=== PATIENT | female | born 1980 | race Caucasian/White ===

== ENCOUNTER 2020-04-13 14:24 | Outpatient (REF) | payer OTHER, SELFPAY | END 2020-04-13 14:25 | disposition home or self-care (01) | LOC: HO.LAB 14:24 | PROVIDERS: Visit Provider Internal Medicine | DX: Z20.828 Contact with and (suspected) exposure to other viral communicable diseases (principal) | CPT/HCPCS: C9803; U0003 ==

== ENCOUNTER 2020-06-10 13:25 | Outpatient (REF) | payer OTHER, SELFPAY ==
--- NOTE | 2020-06-10 | MM_ITS ---
EXAMINATION: MM DIAGNOSTIC DIGITAL BREAST TOMOSYNTHESIS, RIGHT CLINICAL INFORMATION: Status post left mastectomy. Follow up for right breast calcifications. COMPARISON: Mammography: 11/05/2019 and studies dating back to 08/21/2009. TECHNIQUE: Digital breast tomosynthesis is performed in both the craniocaudal and mediolateral oblique views along with computer-aided detection (CAD). Synthesized 2D images are generated from the tomosynthesis. Spot magnification views in craniocaudal and mediolateral views as well as right exaggerated craniocaudal view. FINDINGS: The breasts are heterogeneously dense, which may obscure small masses (ACR BI-RADS breast composition Category c). There are a few scattered groupings of similar-appearing rounded calcifications within the right breast. They appear to have increased in number within a small grouping about the medial aspect of the breast, however, with their scattered appearance and increase over time these are likely benign and continued six-month follow-up study with magnification films is recommended. After the patient had left the department for follow up of the calcifications at time of final review there was noted to be a circumscribed oval retroareolar density which has increased in size from previous study of 11/05/2019 and measures approximately 2.3 x 1.5 cm in size. Patient is scheduled to return for ultrasound of the right breast on 06/15/2020 . Results are provided to the patient at time of visit by the technologist. MM/MM tomosynthesis diagnostic BI IMPRESSION: Probably stable calcifications right breast. Retroareolar density for which ultrasound is recommended. ASSESSMENT: BI-RADS 0: Incomplete - Need Additional Imaging Evaluation RECOMMENDATION: Targeted right breast ultrasound which has been scheduled.
== END 2020-06-10 13:26 | disposition home or self-care (01) ==
LOC: HO.MAMMO 13:25
PROVIDERS: PCP Internal Medicine; Visit Provider Internal Medicine
DX: R92.1 Mammographic calcification found on diagnostic imaging of breast (principal)
CPT/HCPCS: 77062; 77066

== ENCOUNTER 2020-06-15 08:49 | Outpatient (REF) | payer OTHER, SELFPAY ==
--- NOTE | 2020-06-15 08:54 | US_ITS ---
EXAMINATION: US ABDOMEN COMPLETE CLINICAL INFORMATION: Abdominal pain. Abnormal LFTs. COMPARISON: None TECHNIQUE: Real-time imaging of the abdominal viscera. FINDINGS: PANCREAS: The pancreas is homogeneous in echotexture, with mild extrinsic compression from enlarged liver. ABDOMINAL AORTA: The proximal, mid, and distal segments are normal in caliber. INFERIOR VENA CAVA: Visualized portions are normal. LIVER: The liver is diffusely heterogeneous, lobulated contour, bulky with multiple large hypoechoic to echogenic masses. The largest right hepatic lobe lesion measures 5.8 x 4.7 x 5.4 cm and appears solid and heterogeneous. Some of the lesions appear mildly vascular. There is no intrahepatic biliary duct dilatation seen. There is normal hepatopedal flow seen in the middle portal vein on Doppler exam. GALLBLADDER: The gallbladder is contracted with multiple echogenic stones with posterior acoustic shadowing. The largest stone measures 2.7 x 1.5 x 1.9 cm. Gallbladder wall is thickened measuring 0.6 cm. COMMON BILE DUCT: Normal in caliber measuring 0.71 cm in diameter. CBD prominent due to mass effect from enlarged liver. RIGHT KIDNEY: Normal. No hydronephrosis. No renal calculi or focal parenchymal lesions. The kidney measures 10.5 cm in maximum dimension. LEFT KIDNEY: Normal. No hydronephrosis. No renal calculi or focal parenchymal lesions. The kidney measures 10.3 cm in maximum dimension. SPLEEN: Normal. The spleen measures 7.5 cm in maximum dimension. FREE FLUID: None. US/US abdomen complete IMPRESSION: Enlarged bulky liver from multiple solid liver lesions. Question primary versus metastatic disease. Some of the lesions have increased vascularity. Contracted gallbladder with cholelithiasis and mild wall thickening. Small spleen measuring 7.5 cm. Mildly dilated common bile duct measuring 0.71 cm likely secondary to enlarged liver.
--- NOTE | 2020-06-15 10:07 | US_ITS ---
EXAMINATION: US DIAGNOSTIC ULTRASOUND BREAST, RIGHT CLINICAL INFORMATION: Reason diagnostic mammography demonstrates oval retroareolar mass right breast for ultrasound correlation. Age 39. Prior history contralateral left mastectomy. COMPARISON: Mammography 06/10/2020, 06/06/2019. TECHNIQUE: Ultrasound right breast is targeted to the retroareolar and periareolar breast. Grayscale imaging and color Doppler are performed without and with harmonics. FINDINGS: There is a simple cyst retroareolar breast measuring 1.7 x 1.4 x 1.0 cm. This shows no internal complexity and there is increased through-transmission of sound. No associated color flow. The remainder of the targeted area shows no suspicious finding, no solid mass or architectural abnormality or duct ectasia. Results are discussed with the patient at time of visit, using an park interpreter. The mammography report from 06/10/[address] probable benign calcifications right breast for which six-month follow-up exam with magnification views are recommended. The ultrasound finding to the benign-appearing requires no additional follow-up. US/US breast RT limited IMPRESSION: 1. Incidental simple cyst retroareolar right breast 1.7 cm corresponding to finding on recent mammography. BI-RADS 2 Ultrasound. 2. Recent diagnostic mammography report requests six-month follow-up for the probable benign right breast calcifications. BI-RADS 3 Mammography. ASSESSMENT: BI-RADS 3: Probably Benign RECOMMENDATION: Diagnostic right mammography to include magnification views in 6 months. This patient's information was entered into a reminder system with a target due date for their next mammogram.
== END 2020-06-15 08:50 | disposition home or self-care (01) ==
LOC: HO.US 08:49
PROVIDERS: PCP Internal Medicine; Visit Provider Internal Medicine Medical Oncology
DX: N60.01 Solitary cyst of right breast (principal); R94.5 Abnormal results of liver function studies; R10.9 Unspecified abdominal pain
CPT/HCPCS: 76642; 76700

== ENCOUNTER 2020-06-24 10:22 | Outpatient (REF) | payer OTHER, SELFPAY | END 2020-06-24 10:23 | disposition home or self-care (01) | LOC: HO.LAB 10:22 | PROVIDERS: Visit Provider Internal Medicine | DX: Z20.822 Contact with and (suspected) exposure to COVID-19 (principal) | CPT/HCPCS: 36415; C9803; U0003; U0005 ==

== ENCOUNTER 2020-08-18 11:25 | Emergency (ER) | payer OTHER, SELFPAY ==
[2020-08-18 13:17] VITALS: BP 140/86; PULSE 87; RESP 18; TEMP 36.4; O2SAT 99; BMI 26.2
--- NOTE | 2020-08-18 13:19 | ED.ANIMALBIT ---
HPI - Animal Bite General Chief Complaint: Allergic Reaction Stated Complaint: BUG BITE CHEST Time Seen by Provider: 08/18/20 13:17 Source: patient Mode of arrival: ambulatory Limitations: no limitations History of Present Illness HPI narrative: 40 y/o female presenting to the ER with itchy and red area on her chest for the last 1 week after she was bit by an insect. She states it was a large bug of some kind. Shortly after getting bit she had a small bite yen on her chest and it was very itchy. She called her Primary Care doctor last week who arranged an appointment for her but not until October. She reports the bite is still itchy and painful. It is red but not hot. She denies fever, chills, SOB, difficulty breathing. MD complaint: other (insect bite) Onset (ago): day(s) (6) Animal: other (large insect) Mechanism: bite Location: chest Pain description: burning Severity scale (1-10): 6 Associated symptoms: none Related Data Patient tetanus UTD: Yes Home Medications Medication Instructions Recorded Confirmed aspirin 81 mg tablet,delayed 81 mg PO DAILY 02/19/20 06/18/20 release citalopram 10 mg tablet 10 mg PO DAILY 02/19/20 06/18/20 lorazepam 0.5 mg tablet 0.5 mg PO TID PRN 02/19/20 06/18/20 Previous Rx's Medication Instructions Recorded acetaminophen 325 mg tablet 325 mg PO Q8H PRN 30 Days #90 tab 03/31/20 famotidine 20 mg tablet 20 mg PO DAILY 30 Days #30 tab 03/31/20 ferrous sulfate [Feosol] 325 mg PO BID #60 tab 05/19/20 triamcinolone acetonide 1 appl TOPICAL TID #15 g 08/18/20 Allergies Allergy/AdvReac Type Severity Reaction Status Date / Time No Known Allergies Allergy Mild NOT Verified 06/18/20 13:47 APPLICABLE Review of Systems Review of Systems: Constitutional: No Fever, No Chills ENT/Mouth: No sore throat, No Rhinorrhea, No Swallowing Difficulty Cardiovascular: No Chest Pain, No SOB Respiratory: No Cough, No Sputum, No Wheezing, No dyspnea Gastrointestinal: No Nausea, No Vomiting, No Diarrhea, No abdominal Pain Musculoskeletal: No joint pain, No Myalgias Skin: + Skin Lesions, + rash Neuro: No Weakness, No Numbness, No Dizziness, No Headache Psych: + Anxiety/Panic, No Depression Heme/Lymph: No Bruising, No Lymphadenopathy PMFSH Past Medical History Medical History Anxiety Depression Depression with anxiety History of breast cancer Iron deficiency anemia Transaminitis Surgical History H/O left mastectomy History of bilateral tubal ligation Family History Family History Father Diabetes Hypertension CVD (cardiovascular disease) Mother No problems noted. Maternal Grandmother Breast cancer Maternal Grandfather Stomach cancer Family/Other FH: mental illness Sister In good health Daughter In good health Social History Social History Alcohol intake: current Alcohol intake frequency: holidays/special occasions only Smoking Status: Former smoker Advance Directives: No Advance Directives Information Provided: No Physical Exam Vital Signs: Vital Signs: Last Vital Signs Temp 97.5 F 08/18/20 13:17 Pulse 87 08/18/20 13:17 Resp 18 08/18/20 13:17 BP 140/86 H 08/18/20 13:17 Pulse Ox 99 08/18/20 13:17 Body Mass Index 26.2 Appearance: Alert. Oriented X3. No acute distress. Eyes: Pupils equal, round and reactive to light. ENT: Pharynx normal. Neck: Normal inspection. Neck supple. CVS: Normal heart rate and rhythm. Pulses normal. Respiratory: No respiratory distress. Breath sounds normal. Abdomen: Soft and nontender. +BS x4 Skin: Skin warm and dry. Normal skin color. Normal skin turgor. Anterior chest with small superifical lesion over superior sternum consistent with insect bite with surrounding erythema and excoriations, tender, no warmth or flutuance. Course Course Course Narrative: 40 y/o female presenting with insect bite to anterior chest wall 6 days ago. Exam consistent with localized inflammatory response. No evidence of infection. Will treat with topical corticosteroids and oral antihistamines. She was given a dose of prednisone here for itching. She will f/u with her PCP or come back if no improvement or if symptoms worsen. Stable for discharge. Critical Care Time Critical Care Time Critical Care Time: No Discharge Plan Discharge Clinical Impression: Bug bite without infection Qualifiers: Encounter type: initial encounter Qualified Code(s): W57.XXXA - Bitten or stung by nonvenomous insect and other nonvenomous arthropods, initial encounter Patient Disposition: Home, Self-Care Instructions: Insect Bite or Sting (ED) Additional Instructions: You have a localized inflammatory reaction from an insect bite on your chest. Use the topical steroid cream 3 times per day to help with itching. Recommend taking 25 - 50 mg of Benadryl as needed for itching. Use warm compresses to the area several times per day. Avoid perfumes, scented lotions or soaps. If you develop worsening pain, redness or fevers come back to the ER for evaluation of possible infection. Prescriptions: New triamcinolone acetonide 0.5 % ointment 1 appl topical TID Qty: 15 RF: 0 No Action acetaminophen 325 mg tablet 325 mg PO Q8H PRN (Reason: pain) 30 Days Qty: 90 RF: 1 famotidine 20 mg tablet 20 mg PO DAILY 30 Days Qty: 30 RF: 1 ferrous sulfate [Feosol] 325 mg (65 mg iron) Tablet 325 mg PO BID Qty: 60 RF: 6 aspirin 81 mg tablet,delayed release (DR/EC) 81 mg PO DAILY RF: 0 citalopram 10 mg tablet 10 mg PO DAILY RF: 0 lorazepam 0.5 mg tablet 0.5 mg PO TID PRN (Reason: Anxiety) RF: 0 Interventions: ED Discharge Assessment Last Done: 08/18/20 13:55 Discharge Date/Time: 08/18/20 13:57
[2020-08-18] MEDS: predniSONE 20 MG TABLET 40 MG PO (13:32)
[2020-08-18] MEDS: diphenhydrAMINE HCL 25 MG TABLET PO (13:32)
== END 2020-08-18 13:57 | disposition home or self-care (01) ==
LOC: HO.ED 13:38
PROVIDERS: Emergency Provider Emergency Medicine; PCP Internal Medicine
DX: S20.363A Insect bite (nonvenomous) of bilateral front wall of thorax, initial encounter (principal); R07.89 Other chest pain; W57.XXXA Bitten or stung by nonvenomous insect and other nonvenomous arthropods, initial encounter; Y93.9 Activity, unspecified; Y92.9 Unspecified place or not applicable; Y99.9 Unspecified external cause status; Z79.899 Other long term (current) drug therapy; Z79.82 Long term (current) use of aspirin; Z87.891 Personal history of nicotine dependence
CPT/HCPCS: 99282; 99283; Q0163

== ENCOUNTER 2020-11-24 15:32 | Emergency (ER) | payer OTHER, SELFPAY ==
--- NOTE | ~2020-11-24 | XR_ITS ---
EXAMINATION: XR CHEST CLINICAL INFORMATION: Generalized weakness COMPARISON: 01/03/2020 TECHNIQUE: 2 views of the chest were obtained. FINDINGS: Along the right chest wall laterally, there is associated pleural thickening present. An underlying rib lesion causing this cannot be entirely excluded. Given the history of breast carcinoma, CT scan of the chest is recommended for further evaluation. There is new elevation of the right hemidiaphragm compared with the prior study. The heart size is normal. Otherwise clear. No pleural effusions are seen. XR/XR chest 2V IMPRESSION: Abnormality right lateral chest wall/ribs/pleura. CT scan of the chest is recommended for further evaluation, especially given the history of breast cancer.
[2020-11-24 17:28] VITALS: BP 107/71; PULSE 106; RESP 18; TEMP 36.7; O2SAT 99; BMI 26.4
[2020-11-24 17:56] LABS: MANUAL DIFF FLAG NO
[2020-11-24 18:02] LABS: Glucose Urine UA NEG (NEG); Leukocyte Esterase Urine NEG (NEG); Nitrite Urine NEG (NEG); Specific Gravity - Urine 1.025 (1.005-1.025); Urine Blood 2+ (NEG); Urine Ketones 5 MG/DL (NEG); Urine Protein NEG (NEG-TRACE)
[2020-11-24 18:15] LABS: COVID-19 Test Negative (Negative); IDNOW Serial# 9DD0AD1C
[2020-11-24 18:17] LABS: Appearance Urine CLEAR; Color Urine AMBER
[2020-11-24 18:19] LABS: Anion Gap 17 (12-20); Blood Urea Nitrogen 16 mg/dL (9-16); Calcium 10.7 mg/dL (8.4-10.2); Carbon Dioxide 21 mmol/L (22-29); Chloride 105 mmol/L (96-108); Creatinine Clr Calc Pharmacy 84.2; Estimated Glomerular Filt Rate > 60; Glucose Random 94 mg/dL (60-115); Potassium 4.1 mmol/L (3.3-5.1); Sodium 139 mmol/L (135-145)
[2020-11-24 18:28] LABS: Bacteria Urine TRACE /LPF; Hyaline Casts Urine 0-2 /LPF; RBC Urine 0-2 /HPF (0); Squamous Epithelial Cell Urine 2+ /LPF; WBC Urine 0-2 /HPF (0-4)
[2020-11-24 18:47] LABS: Basophils Absolute Auto 0.1 X10*3/uL (0.0-0.2); Basophils Percent Auto 0.8 % (0-2); Eosinophils Percent Auto 0.4 % (0-4); Hemoglobin 14.8 g/dl (12.0-16.0); Imm Gran Abs Auto 0.12 X10*3/uL (0.00-0.03); Imm Gran Pct Auto 1.6 % (0.0-0.4); Lymphocytes Absolute Auto 2.1 X10*3/uL (1.2-4.9); Lymphocytes Percent Auto 27.8 % (20-40); Mean Corpuscular HGB Conc 33.6 g/dl (31.0-35.0); Mean Corpuscular Hemoglobin 30.5 pg (27.0-33.0); Mean Corpuscular Volume 90.5 fL (80-98); Mean Platelet Volume 11.1 fL (9.4-12.3); Monocytes Percent Auto 13.6 % (2-11); NRBC Pct Auto 0.3 /100WBC (0.0-0.2); Neutrophils Absolute Auto 4.1 X10*3/uL (2.0-8.3); Neutrophils Percent Auto 55.8 % (45-73); Platelet Count 371 X10*3/uL (160-400); Red Blood Count 4.86 X10*6/uL (4.20-5.50); Red Cell Distribution Width 15.3 % (11.0-16.0); White Blood Count 7.4 X10*3/uL (4.8-10.8)
[2020-11-24 18:53] LABS: UPreg QC Valid YES; Urine Pregnancy NEGATIVE (NEGATIVE)
[2020-11-24 19:34] VITALS: BP 122/70; PULSE 108; RESP 18; TEMP 36.8; O2SAT 99
--- NOTE | 2020-11-24 19:53 | ED_ITS ---
HPI - Abdominal Pain General Chief Complaint: Abdominal Pain Stated Complaint: Abd pain Time Seen by Provider: 11/24/20 19:27 Source: patient Mode of arrival: ambulatory Limitations: no limitations History of Present Illness HPI narrative: 40-year-old female who presents emergency department for evaluation of abdominal pain, right ear pain and has lump in her sternal area. The patient developed epigastric and left upper quadrant abdominal pain 4 days prior. She states that it came on suddenly. She states the pain has been constant since onset. The pain is a burning sensation which is 9/10 at its worst. She had associated nausea but no vomiting. She denied fever or chills. This is the 1st episode of this type of pain. She did not take any medications for the pain at home. She is also complaining of a lump in the sternal area of her chest that she has had for months. She thought that it occurred after she had a mosquito bite and she has been using [id number] creams with no relief in the size of the lump. She states the lump is tender to palpation. She is also complaining of right-sided ear pain, the pain started 4 days prior has been constant, she describes the pain as a constant, [id number], dull ache with a crackling noise in her ear, she has had no loss of hearing. Related Data Home Medications Medication Instructions Recorded Confirmed aspirin 81 mg tablet,delayed 81 mg PO DAILY 02/19/20 09/23/20 release citalopram 10 mg tablet 10 mg PO DAILY 02/19/20 09/23/20 lorazepam 0.5 mg tablet 0.5 mg PO TID PRN 02/19/20 09/23/20 Previous Rx's Medication Instructions Recorded acetaminophen 325 mg tablet 325 mg PO Q8H PRN 30 Days #90 tab 03/31/20 triamcinolone acetonide 1 appl TOPICAL TID #15 g 08/18/20 diphenhydramine HCl 2 % topical gel 1 appl TOPICAL BID PRN 14 Days 09/23/20 #103 ml ferrous sulfate [Feosol] 325 mg PO BID #60 tab 10/08/20 famotidine 20 mg tablet 20 mg PO DAILY 30 Days #30 tab 10/27/20 omeprazole 20 mg PO DAILY #30 tab 11/24/20 Allergies Allergy/AdvReac Type Severity Reaction Status Date / Time No Known Allergies Allergy Mild NOT Verified 11/24/20 17:28 APPLICABLE Review of Systems Review of Systems Yes all other systems are reviewed and are negative Physical Exam Vital Signs: Vital Signs: Last Vital Signs Temp 98.2 F 11/24/20 19:34 Pulse 108 H 11/24/20 19:34 Resp 18 11/24/20 19:34 BP 122/70 11/24/20 19:34 Pulse Ox 99 11/24/20 19:34 Body Mass Index 26.4 Const: General: cooperative and healthy appearing Orientation/consciousness: oriented to person and oriented to place Limitations: no limitations HENMT: Head: Yes normal to inspection, Yes normocephalic and Yes atraumatic Ears: hearing grossly normal bilaterally, external ears normal and TM's normal bilaterally General nose exam: Normal external nose present Face and sinus: Yes normal facial exam Mouth: Normal oral and palatal mucosa present Throat: Yes posterior oropharynx normal Eyes: Periorbital: periorbital findings normal Eyelids: Yes eyelids normal Conjunctivae: conjunctivae normal Sclerae: sclerae normal Corneas: corneas normal Pupils: Equal, round and reactive pupils present Direct Ophthalmoscopy: normal light reflex Neck: Neck: Yes full ROM, Yes no lymphadenopathy, Yes no meningeal signs, Yes trachea midline and Yes supple Chest: Other: The patient has a 2 x 2 cm circular mass to the mid sternum which is consistent with a lipoma, there is no overlying cellulitis. Resp: Effort & Inspection: normal respiratory effort and able to speak in complete sentences Auscultation: clear to auscultation bilaterally Cardio: Rate: regular rate Rhythm: regular rhythm Heart sounds: S1 normal heart sound present, S2 normal heart sound present and no murmurs GI: Inspection: Yes normal to inspection Palpation (GI): Soft to palpation, Tenderness to palpation present (GI) in the epigastrum ( Moderate), no guarding, not rigid and No hepatosplenomegaly present : General: Yes no CVA tenderness Back/Spine/Pelvis: Back: no CVA tenderness Cervical Spine: normal cervical lordosis Thoracic/Lumbar Spine: thoracic and lumbar spine normal to inspection Skin: Lesions: no lesions Rashes: no rashes Wounds: no wounds Neuro: General: oriented to person, oriented to place and no meningeal signs Cranial nerves: Yes CN's II-XII intact bilaterally and Yes Equal, round and reactive pupils present Cognition (Neuro): normal cognition Motor exam (neuro): 5/5 motor strength present throughout Extrem: General: Yes normal to inspection and Yes full ROM Psych: Appearance: well kempt Mental Status: mental status grossly normal Speech and movement: Normal speech and movement present Affect: normal affect Attitude: cooperative Thought process: Normal thought process present Thought content: Normal thought content present Course Course Course Narrative: 40-year-old female who presents emergency department with 3 separate chief complaints, abdominal pain, right ear pain and sternal mass. The patient's laboratory evaluation was unremarkable.The patient's abdominal pain is consistent with gastritis and the patient will be started on omeprazole 20 mg once a day for 1 month. Patient's right ear revealed no significant abnormalities. The patient's external masses consistent with a lipoma, I will refer the patient to the on-call surgeon for further evaluation of this mass. The patient was given verbal and printed instructions prior to discharge. The patient was advised to follow-up with their PCP in 2 days and to return to the emergency department if their symptoms get worse or if they develop any new symptoms that are concerning to them. MDM - Abdominal Pain Medical Records Attestation: I reviewed the patient's medical records. Lab Data Attestation: I reviewed the patient's lab results. Result diagrams: 11/24/20 17:48 11/24/20 17:48 Labs: Lab Results 11/24/20 11/24/20 11/24/20 Range/Units 17:48 17:48 17:48 WBC 7.4 (4.8-10.8) X10*3/uL RBC 4.86 (4.20-5.50) X10*6/uL Hgb 14.8 D (12.0-16.0) g/dl Hct 44.0 D (37-47) % MCV 90.5 (80-98) fL MCH 30.5 (27.0-33.0) pg MCHC 33.6 (31.0-35.0) g/dl RDW 15.3 (11.0-16.0) % Plt Count 371 (160-400) X10*3/uL MPV 11.1 (9.4-12.3) fL Immature Gran % (Auto) 1.6 H (0.0-0.4) % Neut % (Auto) 55.8 (45-73) % Lymph % (Auto) 27.8 (20-40) % [place] % (Auto) 13.6 H (2-11) % Eos % (Auto) 0.4 (0-4) % Baso % (Auto) 0.8 (0-2) % Lymph # (Auto) 2.1 (1.2-4.9) X10*3/uL [place] # (Auto) 1.0 (0.1-1.2) X10*3/uL Eos # (Auto) 0.0 (0.0-0.4) X10*3/uL Baso # (Auto) 0.1 (0.0-0.2) X10*3/uL Abs Immat Gran (auto) 0.12 H (0.00-0.03) X10*3/uL Absolute Neuts (auto) 4.1 (2.0-8.3) X10*3/uL Absolute Nucleated RBC 0.020 H (0.0-0.012) X10*3/uL Nucleated RBC % (auto) 0.3 H (0.0-0.2) /100WBC Sodium 139 (135-145) mmol/L Potassium 4.1 (3.3-5.1) mmol/L Chloride 105 (96-108) mmol/L Carbon Dioxide 21 L (22-29) mmol/L Anion Gap 17 (12-20) BUN 16 D (9-16) mg/dL Creatinine 0.75 (0.5-1.4) mg/dL Estim Creat Clear Calc 84.2 Estimated GFR > 60 Random Glucose 94 (60-115) mg/dL Calcium 10.7 H D (8.4-10.2) mg/dL Urine Color Urine Appearance Urine pH (5.0-8.0) Ur Specific [place] (1.005-1.025) Urine Protein (NEG-TRACE) MG/DL Urine Glucose (UA) (NEG) MG/DL Urine Ketones (NEG) MG/DL Urine Blood (NEG) Urine Nitrite (NEG) Ur Leukocyte Esterase (NEG) Urine RBC (0) /HPF Urine WBC (0-4) /HPF Ur Squamous Epith Cells /LPF Urine Bacteria /LPF Hyaline Casts /LPF Urine Test NEGATIVE (NEGATIVE) COVID-19 ([facility]) (Negative) COVID-19 Clin Com 11/24/20 11/24/20 Range/Units 17:48 17:48 WBC (4.8-10.8) X10*3/uL RBC (4.20-5.50) X10*6/uL Hgb (12.0-16.0) g/dl Hct (37-47) % MCV (80-98) fL MCH (27.0-33.0) pg MCHC (31.0-35.0) g/dl RDW (11.0-16.0) % Plt Count (160-400) X10*3/uL MPV (9.4-12.3) fL Immature Gran % (Auto) (0.0-0.4) % Neut % (Auto) (45-73) % Lymph % (Auto) (20-40) % [place] % (Auto) (2-11) % Eos % (Auto) (0-4) % Baso % (Auto) (0-2) % Lymph # (Auto) (1.2-4.9) X10*3/uL [place] # (Auto) (0.1-1.2) X10*3/uL Eos # (Auto) (0.0-0.4) X10*3/uL Baso # (Auto) (0.0-0.2) X10*3/uL Abs Immat Gran (auto) (0.00-0.03) X10*3/uL Absolute Neuts (auto) (2.0-8.3) X10*3/uL Absolute Nucleated RBC (0.0-0.012) X10*3/uL Nucleated RBC % (auto) (0.0-0.2) /100WBC Sodium (135-145) mmol/L Potassium (3.3-5.1) mmol/L Chloride (96-108) mmol/L Carbon Dioxide (22-29) mmol/L Anion Gap (12-20) BUN (9-16) mg/dL Creatinine (0.5-1.4) mg/dL Estim Creat Clear Calc Estimated GFR Random Glucose (60-115) mg/dL Calcium (8.4-10.2) mg/dL Urine Color ANDREA Urine Appearance CLEAR Urine pH 6.0 (5.0-8.0) Ur Specific [place] 1.025 (1.005-1.025) Urine Protein NEG (NEG-TRACE) MG/DL Urine Glucose (UA) NEG (NEG) MG/DL Urine Ketones 5 (NEG) MG/DL Urine Blood 2+ H (NEG) Urine Nitrite NEG (NEG) Ur Leukocyte Esterase NEG (NEG) Urine RBC 0-2 (0) /HPF Urine WBC 0-2 (0-4) /HPF Ur Squamous Epith Cells 2+ /LPF Urine Bacteria TRACE /LPF Hyaline Casts 0-2 /LPF Urine Test (NEGATIVE) COVID-19 ([facility]) Negative (Negative) COVID-19 Clin Com See Note Discharge Plan Discharge Clinical Impression: Lipoma of chest wall Gastritis Qualifiers: Gastritis type: unspecified gastritis Chronicity: acute Gastritis bleeding: without bleeding Qualified Code(s): K29.00 - Acute gastritis without bleeding Acute ear pain Qualifiers: Laterality: right Qualified Code(s): H92.01 - Otalgia, right ear Patient Disposition: Home, Self-Care Instructions: Gastritis (ED), Lipoma (ED) Additional Instructions: Your abdominal pain is consistent with gastritis. Take Prilosec (omeprazole) 20 mg pills, 1 pill daily for 1 month. This will shut off your acid production your stomach and allow the inflammation to heal. At this time, I believe that the lump on your chest is consistent with a lipoma (collection of fat), but I am going to refer you to our on-call surgeon for further evaluation. I do not have a clear cause for your your pain, your exam was normal. Follow-up with your doctor in 2 days. Also, call our surgeon on-call for evaluation within 2 weeks to evaluate the mass on your chest Please return to the emergency department if your symptoms get worse or if you develop any symptoms that are concerning to you. Prescriptions: New omeprazole 20 mg tablet,delayed release (DR/EC) 20 mg PO DAILY Qty: 30 RF: 0 No Action acetaminophen 325 mg tablet 325 mg PO Q8H PRN (Reason: pain) 30 Days Qty: 90 RF: 1 famotidine 20 mg tablet 20 mg PO DAILY 30 Days Qty: 30 RF: 1 ferrous sulfate [Feosol] 325 mg (65 mg iron) Tablet 325 mg PO BID Qty: 60 RF: 6 triamcinolone acetonide 0.5 % ointment 1 appl topical TID Qty: 15 RF: 0 Benadryl 2 % gel 1 appl topical BID PRN (Reason: itching) 14 Days Qty: 103 RF: 0 aspirin 81 mg tablet,delayed release (DR/EC) 81 mg PO DAILY RF: 0 citalopram 10 mg tablet 10 mg PO DAILY RF: 0 lorazepam 0.5 mg tablet 0.5 mg PO TID PRN (Reason: Anxiety) RF: 0 Referrals: Alexander Weaver MD [Physician] - 2 weeks ( 2 x 2 cm mass to sternum times several months, question lipoma, please evaluate) [facility] Past Medical History [facility] Narrative: Social history: she denies tobacco, alcohol and drug use. Medical History Anxiety Depression Depression with anxiety History of breast cancer Iron deficiency anemia Mosquito bite Transaminitis Surgical History H/O left mastectomy History of bilateral tubal ligation Family History Family History Father Diabetes Hypertension CVD (cardiovascular disease) Mother No problems noted. Maternal Grandmother Breast cancer Maternal Grandfather Stomach cancer Family/Other FH: mental illness Sister In good health Daughter In good health Social History Social History Alcohol intake: never Patient Tobacco Use Status: Never used Tobacco Use of substances other than those prescribed or required for medical reasons: No Advance Directives: No Advance Directives Information Provided: Yes Patient : No
== END 2020-11-24 20:17 | disposition home or self-care (01) ==
PROVIDERS: Emergency Provider Emergency Medicine Emergency Medical Services; PCP Internal Medicine
DX: K29.00 Acute gastritis without bleeding (principal); D17.1 Benign lipomatous neoplasm of skin and subcutaneous tissue of trunk; H92.01 Otalgia, right ear; Z20.822 Contact with and (suspected) exposure to COVID-19
CPT/HCPCS: 36415; 71046; 80048; 81001; 81025; 85025; 87635; 99283; 99284

== ENCOUNTER 2020-12-05 02:47 | Emergency (ER) | payer OTHER, SELFPAY ==
[2020-12-05] VITALS (10 sets, daily range): BP systolic 99–124; BP diastolic 51–73; PULSE 120–147; RESP 22–33; TEMP 36.5–38.3; O2SAT 94–98; BMI 23.8
--- NOTE | ~2020-12-05 | CT_ITS ---
EXAMINATION: CT ABDOMEN AND PELVIS WITHOUT CONTRAST CLINICAL INFORMATION: Jaundice, palpated liver, seizure COMPARISON: 01/20/2018 TECHNIQUE: Multidetector volumetric imaging was performed from the superior aspect of the liver through the pubic symphysis. Sagittal and coronal reformatted images were obtained on the technologist's workstation. This CT examination was performed using dose optimization techniques as appropriate, variously including the following: *Automated exposure control *Adjustment of mA and/or kV according to patient size (this includes techniques or standardized protocols for targeted exams where dose is matched to indication/reason for exam; i.e. extremities or head) *Use of iterative reconstruction technique DLP: 738 mGy-cm FINDINGS: LUNG BASES: Partially visualized small right pleural effusion with underlying dependent atelectasis. Partially visualized left breast implant. LIVER, GALLBLADDER, AND BILIARY TREE: The unenhanced liver is enlarged and demonstrates numerous hypoattenuating lesions, new from 01/20/2018 and suspicious for extensive hepatic metastases. Small amount of perihepatic fluid is noted. No biliary ductal dilatation is seen. The gallbladder is contracted and demonstrates cholelithiasis. PANCREAS: Grossly unremarkable though suboptimally assessed without IV contrast. SPLEEN: Diminutive. ADRENAL GLANDS: Unremarkable. KIDNEYS AND URETERS: The kidneys are normal in size, shape, and attenuation. No hydronephrosis, hydroureter, or calculi seen. No perinephric stranding. BLADDER: Empty and not adequately evaluated. GASTROINTESTINAL TRACT: The small and large bowel are unremarkable. The appendix is unremarkable. No free air is seen. ABDOMINAL WALL: No significant hernia is appreciated. LYMPH NODES: No significant lymphadenopathy is seen, though assessment is limited in the absence of intravenous contrast. VASCULAR: Unremarkable. PELVIC VISCERA: Unremarkable. There is moderate pelvic free fluid. OSSEOUS STRUCTURES: There is a heterogeneously lytic/sclerotic appearance of the sternum with partially visualized surrounding soft tissue density. Partially visualized lytic expansile lesion of the lateral right fourth rib. Subtle lytic lesion of the posterior right 11th rib is suspected. There is a lytic lesion of the anterior right iliac bone. CT/CT abdomen pelvis wo con IMPRESSION: 1. Numerous masses within an enlarged liver, suspicious for metastatic disease. Trace perihepatic fluid. 2. Osseous lesions within the sternum, lateral right fourth rib, posterior right 11th rib, and right iliac bone suspicious for metastatic disease. 3. Moderate pelvic free fluid. 4. Partially visualized small right pleural effusion with underlying atelectasis.
--- NOTE | ~2020-12-05 | CT_ITS ---
EXAMINATION: NONCONTRAST HEAD CT NONCONTRAST CERVICAL SPINE CT INDICATION INFORMATION: Seizure, fall COMPARISON: None TECHNIQUE: Separate noncontrast CT examinations of the head and cervical spine were performed. Coronal head CT images and coronal and sagittal cervical spine images were created at the technologist workstation. DLP: 977 mGy-cm DOSE LOWERING TECHNIQUES: This CT examination was performed using dose optimization techniques as appropriate, variously including the following: - Automated exposure control - Adjustment of mA and/or kV according to patient size (this includes techniques or standardized protocols for targeted exams were dose is matched to indication/reason for exam; i.e. extremities or head) - Use of iterative reconstruction technique FINDINGS: Head: There are expansile heterogeneously lytic lesions of the calvarium, most prominently involving the right parietal bone though also with some involvement of the left calvarium. There is some mass effect on the underlying right cerebral hemisphere with approximately 5 mm leftward midline shift. There is no evidence of acute intracranial hemorrhage or territorial infarction. Goff to white matter differentiation is well preserved. No extra-axial fluid collections are identified. The ventricles are normal in size. Mild right frontal scalp soft tissue swelling noted. No acute fracture is seen. The visualized portions of the paranasal sinuses are well-aerated. There is partial of opacification of the right mastoid air cells. Cervical spine: There is anatomic alignment of the vertebral bodies and posterior elements. Vertebral body heights are maintained. Intervertebral disc spaces are preserved. No evidence of acute fracture. No prevertebral soft tissue swelling. There is a focal lytic lesion in the left T1 transverse process. Visualized portions of the lung apices are unremarkable. The thyroid gland is unremarkable. CT/CT cervical spine wo con IMPRESSION: 1. Expansile lytic lesions of the calvarium, right greater than left, suspicious for metastatic disease given the history of breast cancer. There is underlying mass effect on the right cerebral hemisphere with approximately 5 mm leftward midline shift. 2. Focal lytic lesion also noted in the left T1 transverse process, 3. No acute traumatic findings of the cervical spine.
--- NOTE | 2020-12-05 02:52 | ECG_ITS ---
Test Reason : AMS Blood Pressure : / mmHG Vent. Rate : 129 BPM Atrial Rate : 129 BPM P-R Int : 146 ms QRS Dur : 058 ms QT Int : 266 ms P-R-T Axes : 069 075 049 degrees QTc Int : 389 ms Sinus tachycardia Otherwise normal ECG When compared to the previous EKG of Sinus tachycardia present Referred By: Erin Silva Electronically Signed By:Kleber Pope
[2020-12-05 03:15] LABS: Glucose, Whole Blood 146 mg/dL (60-115)
--- NOTE | 2020-12-05 03:29 | ED_ITS ---
HPI - Seizure General Chief Complaint: Seizure Stated Complaint: ? SEIZURE Time Seen by Provider: 12/05/20 02:52 Source: family (Daughter) and EMS Mode of arrival: EMS History of Present Illness HPI Narrative: This is a 40-year-old female with past medical history of depression, GERD, her to positive carcinoma of breast who is brought in by EMS after patient's family heard a ?thud? and found patient on the ground beside her bed shaking with what appeared to be a seizure for ?a few minutes?. As per EMS patient appeared to be alert and route but was not answering questions and on obtaining further collateral information patient's family states that patient has been very quiet over the past week and not much like her self. On questi oning the daughter she states that patient has been slowly declining over the past week with decrease in speech right now for 2 days. Daughter also states that she did not notice the jaundice until today. Related Data Home Medications Medication Instructions Recorded Confirmed aspirin 81 mg tablet,delayed 81 mg PO DAILY 02/19/20 09/23/20 release citalopram 10 mg tablet 10 mg PO DAILY 02/19/20 09/23/20 lorazepam 0.5 mg tablet 0.5 mg PO TID PRN 02/19/20 09/23/20 Previous Rx's Medication Instructions Recorded acetaminophen 325 mg tablet 325 mg PO Q8H PRN 30 Days #90 tab 03/31/20 triamcinolone acetonide 1 appl TOPICAL TID #15 g 08/18/20 diphenhydramine HCl 2 % topical gel 1 appl TOPICAL BID PRN 14 Days 09/23/20 #103 ml ferrous sulfate [Feosol] 325 mg PO BID #60 tab 10/08/20 famotidine 20 mg tablet 20 mg PO DAILY 30 Days #30 tab 10/27/20 omeprazole 20 mg PO DAILY #30 tab 11/24/20 Allergies Allergy/AdvReac Type Severity Reaction Status Date / Time No Known Allergies Allergy Mild NOT Verified 11/24/20 17:28 APPLICABLE Review of Systems Review of Systems: Yes Unobtainable due to mental status PMFSH Past Medical History Source: nursing notes reviewed Medical History Anxiety Depression Depression with anxiety History of breast cancer Iron deficiency anemia Mosquito bite Transaminitis Surgical History H/O left mastectomy History of bilateral tubal ligation Family History Family History Father Diabetes Hypertension CVD (cardiovascular disease) Mother No problems noted. Maternal Grandmother Breast cancer Maternal Grandfather Stomach cancer Family/Other FH: mental illness Sister In good health Daughter In good health Social History Social History Alcohol intake: never Patient Tobacco Use Status: Never used Tobacco Advance Directives: No Advance Directives Information Provided: No Physical Exam Vital Signs: Vital Signs: Last Vital Signs Temp 99.3 F 12/05/20 06:40 Pulse 147 H 12/05/20 06:57 Resp 32 H 12/05/20 06:57 BP 114/65 12/05/20 06:57 Pulse Ox 96 12/05/20 06:57 Oxygen Flow Rate 3 12/05/20 02:59 Body Mass Index 23.8 VITAL SIGNS: Reviewed. GENERAL: Well developed, well nourished, in no acute distress. HEAD: Normocephalic/contusion with hematoma at right forehead EYES: PERRLA, EOMI, scleral icterus EARS: Ext canals without abnormality, TMs non-bulging and non-erythematous NOSE: Nares patent bilateral OROPHARYNX: no oral lesions noted, posterior pharynx clear, dry mucosa NECK: Supple, no adenopathy LUNGS: Normal breath sounds. No adventitious sounds or accessory muscle use. SpO2<94> CARDIOVASCULAR: Sinus tachycardia and rhythm without noted murmurs, no JVD or lower extremity edema. ABDOMEN: Soft, palpable liver/enlarged with noted grimacing by the patient on palpation, non-distended with bowel sounds. MUSCULOSKELETAL: No tenderness, deformities, or effusions noted on gross inspection, small abrasion noted to right knee. EXTREMITIES: No cyanosis, clubbing or edema. SKIN: Inspection of the skin reveals no rashes, but significant jaundice NEUROLOGIC: Alert but not verbal, patient is noted to be tracking Course Course Course Narrative: This is a 40-year-old female with history and clinical presentation concerning for new onset seizure with noted jaundice concerning for possible kernicterus in etiology. Gradual review of contributing information identifies that patient was recently diagnosed with breast cancer in 04/2020 and noted to have several visit with Dr. Weaver for a ?sternal mass?. On review of prior imaging there is a noted abdominal ultrasound from May/2020 that demonstrates significant liver pathology and reports of unclear etiology as opposed to primary versus metastatic. Attempting to get any possible records from [facility], in the event patient has visits there. On evaluation of patient she appears to be tracking and appears to attempt to speak but is unable to. There is no obvious focal deficits, although patient ap pears to have difficulty with following commands. On review of all investigations the lab work demonstrates significant derangements in both electrolytes as well as liver enzymes. 0515: Patient noted to be having a seizure, lasted approximately 45 seconds, patient provided with 1 mg of Ativan. Patient continues to protect her airway and is noted to be febrile at 101 and received Tylenol IL. Reevaluation(s) Reevaluation #1: I spoke with the eldest daughter of the patient who states that she noticed the jaundice approximately 3 days ago and was unaware of the extent of her mother's illness. I informed her that the prognosis at this time was poor and that her mother which need to be transferred to [facility] for further intervention and evaluation. The daughter states that patient's sister lives nearby and she will be contacting her for additional support in decision making. She understands her mother will be transferred to [facility] at this time. Time: 04:55 Reevaluation #2: I discussed the case with [facility] neurosurgery who will accept the patient in consultation and does not recommend steroids at this time as it appears that the mass effect is not secondary to edema. Time: 05:20 Reevaluation #3: I discussed the case with the MICU attending who accepts transfer and recommends D5W with 150 of bicarb. Time: 06:36 MDM - Seizure Lab Data Result diagrams: 12/05/20 03:41 12/05/20 03:41 Labs: Lab Results 12/05/20 12/05/20 12/05/20 Range/Units 02:56 03:41 03:41 WBC 11.4 H (4.8-10.8) X10*3/uL RBC 5.65 H (4.20-5.50) X10*6/uL Hgb 17.2 H (12.0-16.0) g/dl Hct 49.7 H (37-47) % MCV 88.0 (80-98) fL MCH 30.4 (27.0-33.0) pg MCHC 34.6 (31.0-35.0) g/dl RDW 19.0 H (11.0-16.0) % Plt Count 308 (160-400) X10*3/uL MPV 12.6 H (9.4-12.3) fL Immature Gran % (Auto) Cancelled Neut % (Auto) Cancelled Lymph % (Auto) Cancelled Archer % (Auto) Cancelled Eos % (Auto) Cancelled Baso % (Auto) Cancelled Lymph # (Auto) Cancelled Archer # (Auto) Cancelled Eos # (Auto) Cancelled Baso # (Auto) Cancelled Abs Immat Gran (auto) Cancelled Absolute Neuts (auto) Cancelled Absolute Nucleated RBC 0.020 H (0.0-0.012) X10*3/uL Nucleated RBC % (auto) 0.2 (0.0-0.2) /100WBC Neutrophils % (Manual) 74 H (45-73) % Band Neutrophils % 1 L (3-5) % Lymphocytes % (Manual) 8 L (20-40) % Monocytes % (Manual) 14 H (2-11) % Myelocytes % 2 % Promyelocytes % 1 % Abs Neuts (Manual) 8.6 H (2.2-7.9) X10*3/uL Lymphocytes # (Manual) 0.9 (0.6-4.8) X10*3/uL Monocytes # (Manual) 1.6 H (0.0-1.2) X10*3/uL Myelocytes # 0.2 X10*/uL Promyelocytes # 0.1 X10*3/uL Platelet Estimate NORMAL (NORMAL) Large Platelets PRESENT Giant Platelets PRESENT Plt Morphology Comment NOTED RBC Morphology NOTED Polychromasia 1+ (0-2) /OIF Macrocytosis 1+ (5-14) /OIF Target Cells 1+ (5-14) /OIF VBG pH (7.32-7.43) VBG pCO2 mmHg VBG pO2 mmHg VBG HCO3 (22-26) mmol/L VBG O2 Saturation % VBG Base Excess mmol/L Sodium 131 L (135-145) mmol/L Potassium 5.2 H D (3.3-5.1) mmol/L Chloride 95 L (96-108) mmol/L Carbon Dioxide 13 L (22-29) mmol/L Anion Gap 28 H (12-20) BUN 69 H D (9-16) mg/dL Creatinine 2.12 H (0.5-1.4) mg/dL Estim Creat Clear Calc 27.5 Estimated GFR 26 POC Glucose 146 H (60-115) mg/dL Random Glucose 130 H D (60-115) mg/dL Calcium 9.9 D (8.4-10.2) mg/dL Magnesium 3.1 H (1.6-2.6) mg/dL Total Bilirubin 14.6 H (0.0-1.0) mg/dL Direct Bilirubin 11.7 H (0.0-0.5) mg/dL AST 2532 H (5-31) U/L ALT 417 H (0-31) U/L Alkaline Phosphatase 1504 H D (39-117) U/L Ammonia (13-55) umol/L Total Protein 6.6 (6.5-8.0) g/dL Albumin 3.1 L (3.5-5.0) g/dL Urine Color Urine Appearance Urine pH (5.0-8.0) Ur Specific [place] (1.005-1.025) Urine Protein (NEG-TRACE) MG/DL Urine Glucose (UA) (NEG) MG/DL Urine Ketones (NEG) MG/DL Urine Blood (NEG) Urine Nitrite (NEG) Ur Leukocyte Esterase (NEG) Urine RBC (0) /HPF Urine WBC (0-4) /HPF Ur Squamous Epith Cells /LPF Ur Renal Epithelial Cell /LPF Calcium Oxalate Crystal /LPF Amorphous Sediment /LPF Urine Bacteria /LPF Granular Casts /LPF Urine Mucus /LPF Urine Test (NEGATIVE) Urine Opiates Screen (Not Detect) Ur Barbiturates Screen (Not Detect) Ur Phencyclidine Scrn (Not Detect) Ur Amphetamines Screen (Not Detect) U Benzodiazepines Scrn (Not Detect) Urine Cocaine Screen (Not Detect) U Marijuana (THC) Screen (Not Detect) Ethyl Alcohol mg/dL COVID-19 ([facility]) (Negative) COVID-19 Clin Com 12/05/20 12/05/20 12/05/20 Range/Units 03:41 03:41 05:10 WBC (4.8-10.8) X10*3/uL RBC (4.20-5.50) X10*6/uL Hgb (12.0-16.0) g/dl Hct (37-47) % MCV (80-98) fL MCH (27.0-33.0) pg MCHC (31.0-35.0) g/dl RDW (11.0-16.0) % Plt Count (160-400) X10*3/uL MPV (9.4-12.3) fL Immature Gran % (Auto) Neut % (Auto) Lymph % (Auto) Archer % (Auto) Eos % (Auto) Baso % (Auto) Lymph # (Auto) Archer # (Auto) Eos # (Auto) Baso # (Auto) Abs Immat Gran (auto) Absolute Neuts (auto) Absolute Nucleated RBC (0.0-0.012) X10*3/uL Nucleated RBC % (auto) (0.0-0.2) /100WBC Neutrophils % (Manual) (45-73) % Band Neutrophils % (3-5) % Lymphocytes % (Manual) (20-40) % Monocytes % (Manual) (2-11) % Myelocytes % % Promyelocytes % % Abs Neuts (Manual) (2.2-7.9) X10*3/uL Lymphocytes # (Manual) (0.6-4.8) X10*3/uL Monocytes # (Manual) (0.0-1.2) X10*3/uL Myelocytes # X10*/uL Promyelocytes # X10*3/uL Platelet Estimate (NORMAL) Large Platelets Giant Platelets Plt Morphology Comment RBC Morphology Polychromasia /OIF Macrocytosis /OIF Target Cells /OIF VBG pH (7.32-7.43) VBG pCO2 mmHg VBG pO2 mmHg VBG HCO3 (22-26) mmol/L VBG O2 Saturation % VBG Base Excess mmol/L Sodium (135-145) mmol/L Potassium (3.3-5.1) mmol/L Chloride (96-108) mmol/L Carbon Dioxide (22-29) mmol/L Anion Gap (12-20) BUN (9-16) mg/dL Creatinine (0.5-1.4) mg/dL Estim Creat Clear Calc Estimated GFR POC Glucose (60-115) mg/dL Random Glucose (60-115) mg/dL Calcium (8.4-10.2) mg/dL Magnesium (1.6-2.6) mg/dL Total Bilirubin (0.0-1.0) mg/dL Direct Bilirubin (0.0-0.5) mg/dL AST (5-31) U/L ALT (0-31) U/L Alkaline Phosphatase (39-117) U/L Ammonia 59 H (13-55) umol/L Total Protein (6.5-8.0) g/dL Albumin (3.5-5.0) g/dL Urine Color Urine Appearance Urine pH (5.0-8.0) Ur Specific [place] (1.005-1.025) Urine Protein (NEG-TRACE) MG/DL Urine Glucose (UA) (NEG) MG/DL Urine Ketones (NEG) MG/DL Urine Blood (NEG) Urine Nitrite (NEG) Ur Leukocyte Esterase (NEG) Urine RBC (0) /HPF Urine WBC (0-4) /HPF Ur Squamous Epith Cells /LPF Ur Renal Epithelial Cell /LPF Calcium Oxalate Crystal /LPF Amorphous Sediment /LPF Urine Bacteria /LPF Granular Casts /LPF Urine Mucus /LPF Urine Test (NEGATIVE) Urine Opiates Screen (Not Detect) Ur Barbiturates Screen (Not Detect) Ur Phencyclidine Scrn (Not Detect) Ur Amphetamines Screen (Not Detect) U Benzodiazepines Scrn (Not Detect) Urine Cocaine Screen (Not Detect) U Marijuana (THC) Screen (Not Detect) Ethyl Alcohol < 10 mg/dL COVID-19 ([facility]) Negative (Negative) COVID-19 Clin Com See Note 12/05/20 12/05/20 12/05/20 Range/Units 05:42 05:42 05:42 WBC (4.8-10.8) X10*3/uL RBC (4.20-5.50) X10*6/uL Hgb (12.0-16.0) g/dl Hct (37-47) % MCV (80-98) fL MCH (27.0-33.0) pg MCHC (31.0-35.0) g/dl RDW (11.0-16.0) % Plt Count (160-400) X10*3/uL MPV (9.4-12.3) fL Immature Gran % (Auto) Neut % (Auto) Lymph % (Auto) Archer % (Auto) Eos % (Auto) Baso % (Auto) Lymph # (Auto) Archer # (Auto) Eos # (Auto) Baso # (Auto) Abs Immat Gran (auto) Absolute Neuts (auto) Absolute Nucleated RBC (0.0-0.012) X10*3/uL Nucleated RBC % (auto) (0.0-0.2) /100WBC Neutrophils % (Manual) (45-73) % Band Neutrophils % (3-5) % Lymphocytes % (Manual) (20-40) % Monocytes % (Manual) (2-11) % Myelocytes % % Promyelocytes % % Abs Neuts (Manual) (2.2-7.9) X10*3/uL Lymphocytes # (Manual) (0.6-4.8) X10*3/uL Monocytes # (Manual) (0.0-1.2) X10*3/uL Myelocytes # X10*/uL Promyelocytes # X10*3/uL Platelet Estimate (NORMAL) Large Platelets Giant Platelets Plt Morphology Comment RBC Morphology Polychromasia /OIF Macrocytosis /OIF Target Cells /OIF VBG pH (7.32-7.43) VBG pCO2 mmHg VBG pO2 mmHg VBG HCO3 (22-26) mmol/L VBG O2 Saturation % VBG Base Excess mmol/L Sodium (135-145) mmol/L Potassium (3.3-5.1) mmol/L Chloride (96-108) mmol/L Carbon Dioxide (22-29) mmol/L Anion Gap (12-20) BUN (9-16) mg/dL Creatinine (0.5-1.4) mg/dL Estim Creat Clear Calc Estimated GFR POC Glucose (60-115) mg/dL Random Glucose (60-115) mg/dL Calcium (8.4-10.2) mg/dL Magnesium (1.6-2.6) mg/dL Total Bilirubin (0.0-1.0) mg/dL Direct Bilirubin (0.0-0.5) mg/dL AST (5-31) U/L ALT (0-31) U/L Alkaline Phosphatase (39-117) U/L Ammonia (13-55) umol/L Total Protein (6.5-8.0) g/dL Albumin (3.5-5.0) g/dL Urine Color DARK YELLOW Urine Appearance HAZY Urine pH 5.5 (5.0-8.0) Ur Specific [place] >= 1.030 H (1.005-1.025) Urine Protein 2+ H (NEG-TRACE) MG/DL Urine Glucose (UA) NEG (NEG) MG/DL Urine Ketones NEG (NEG) MG/DL Urine Blood TRACE (NEG) Urine Nitrite NEG (NEG) Ur Leukocyte Esterase NEG (NEG) Urine RBC 0-2 (0) /HPF Urine WBC 0-2 (0-4) /HPF Ur Squamous Epith Cells TRACE /LPF Ur Renal Epithelial Cell TRACE /LPF Calcium Oxalate Crystal TRACE /LPF Amorphous Sediment 3+ /LPF Urine Bacteria NONE /LPF Granular Casts 15-29 /LPF Urine Mucus TRACE /LPF Urine Test NEGATIVE (NEGATIVE) Urine Opiates Screen Not Detected (Not Detect) Ur Barbiturates Screen Not Detected (Not Detect) Ur Phencyclidine Scrn Not Detected (Not Detect) Ur Amphetamines Screen Not Detected (Not Detect) U Benzodiazepines Scrn Not Detected (Not Detect) Urine Cocaine Screen Not Detected (Not Detect) U Marijuana (THC) Screen Not Detected (Not Detect) Ethyl Alcohol mg/dL COVID-19 ([facility]) (Negative) COVID-19 Clin Com 12/05/20 Range/Units 05:46 WBC (4.8-10.8) X10*3/uL RBC (4.20-5.50) X10*6/uL Hgb (12.0-16.0) g/dl Hct (37-47) % MCV (80-98) fL MCH (27.0-33.0) pg MCHC (31.0-35.0) g/dl RDW (11.0-16.0) % Plt Count (160-400) X10*3/uL MPV (9.4-12.3) fL Immature Gran % (Auto) Neut % (Auto) Lymph % (Auto) Archer % (Auto) Eos % (Auto) Baso % (Auto) Lymph # (Auto) Archer # (Auto) Eos # (Auto) Baso # (Auto) Abs Immat Gran (auto) Absolute Neuts (auto) Absolute Nucleated RBC (0.0-0.012) X10*3/uL Nucleated RBC % (auto) (0.0-0.2) /100WBC Neutrophils % (Manual) (45-73) % Band Neutrophils % (3-5) % Lymphocytes % (Manual) (20-40) % Monocytes % (Manual) (2-11) % Myelocytes % % Promyelocytes % % Abs Neuts (Manual) (2.2-7.9) X10*3/uL Lymphocytes # (Manual) (0.6-4.8) X10*3/uL Monocytes # (Manual) (0.0-1.2) X10*3/uL Myelocytes # X10*/uL Promyelocytes # X10*3/uL Platelet Estimate (NORMAL) Large Platelets Giant Platelets Plt Morphology Comment RBC Morphology Polychromasia /OIF Macrocytosis /OIF Target Cells /OIF VBG pH 7.09 L* (7.32-7.43) VBG pCO2 33 mmHg VBG pO2 89 mmHg VBG HCO3 10 L (22-26) mmol/L VBG O2 Saturation 91.0 % VBG Base Excess -18.4 mmol/L Sodium (135-145) mmol/L Potassium (3.3-5.1) mmol/L Chloride (96-108) mmol/L Carbon Dioxide (22-29) mmol/L Anion Gap (12-20) BUN (9-16) mg/dL Creatinine (0.5-1.4) mg/dL Estim Creat Clear Calc Estimated GFR POC Glucose (60-115) mg/dL Random Glucose (60-115) mg/dL Calcium (8.4-10.2) mg/dL Magnesium (1.6-2.6) mg/dL Total Bilirubin (0.0-1.0) mg/dL Direct Bilirubin (0.0-0.5) mg/dL AST (5-31) U/L ALT (0-31) U/L Alkaline Phosphatase (39-117) U/L Ammonia (13-55) umol/L Total Protein (6.5-8.0) g/dL Albumin (3.5-5.0) g/dL Urine Color Urine Appearance Urine pH (5.0-8.0) Ur Specific [place] (1.005-1.025) Urine Protein (NEG-TRACE) MG/DL Urine Glucose (UA) (NEG) MG/DL Urine Ketones (NEG) MG/DL Urine Blood (NEG) Urine Nitrite (NEG) Ur Leukocyte Esterase (NEG) Urine RBC (0) /HPF Urine WBC (0-4) /HPF Ur Squamous Epith Cells /LPF Ur Renal Epithelial Cell /LPF Calcium Oxalate Crystal /LPF Amorphous Sediment /LPF Urine Bacteria /LPF Granular Casts /LPF Urine Mucus /LPF Urine Test (NEGATIVE) Urine Opiates Screen (Not Detect) Ur Barbiturates Screen (Not Detect) Ur Phencyclidine Scrn (Not Detect) Ur Amphetamines Screen (Not Detect) U Benzodiazepines Scrn (Not Detect) Urine Cocaine Screen (Not Detect) U Marijuana (THC) Screen (Not Detect) Ethyl Alcohol mg/dL COVID-19 ([facility]) (Negative) COVID-19 Clin Com ECG Data Attestation: I personally reviewed and interpreted this ECG as follows: Prior ECG tracings: not available for review Interpretation: Sinus tachycardia, HR-129, no STEMI, IL/QRS/QTC are within normal limits. Discharge Plan Discharge Clinical Impression: Metastatic breast cancer, Seizures Patient Disposition: [facility] Transfer Details: Metastatic breast CA, seizures Prescriptions: No Action acetaminophen 325 mg tablet 325 mg PO Q8H PRN (Reason: pain) 30 Days Qty: 90 RF: 1 famotidine 20 mg tablet 20 mg PO DAILY 30 Days Qty: 30 RF: 1 ferrous sulfate [Feosol] 325 mg (65 mg iron) Tablet 325 mg PO BID Qty: 60 RF: 6 triamcinolone acetonide 0.5 % ointment 1 appl topical TID Qty: 15 RF: 0 omeprazole 20 mg tablet,delayed release (DR/EC) 20 mg PO DAILY Qty: 30 RF: 0 Benadryl 2 % gel 1 appl topical BID PRN (Reason: itching) 14 Days Qty: 103 RF: 0 aspirin 81 mg tablet,delayed release (DR/EC) 81 mg PO DAILY RF: 0 citalopram 10 mg tablet 10 mg PO DAILY RF: 0 lorazepam 0.5 mg tablet 0.5 mg PO TID PRN (Reason: Anxiety) RF: 0
[2020-12-05 03:52] LABS: Hematocrit 49.7 % (37-47); Hemoglobin 17.2 g/dl (12.0-16.0); Mean Corpuscular HGB Conc 34.6 g/dl (31.0-35.0); Mean Corpuscular Hemoglobin 30.4 pg (27.0-33.0); Mean Platelet Volume 12.6 fL (9.4-12.3); NRBC Pct Auto 0.2 /100WBC (0.0-0.2); Platelet Count 308 X10*3/uL (160-400); Red Blood Count 5.65 X10*6/uL (4.20-5.50); White Blood Count 11.4 X10*3/uL (4.8-10.8)
[2020-12-05 04:11] LABS: Ethanol < 10 mg/dL
[2020-12-05 04:19] LABS: Alanine Aminotransferase 417 U/L (0-31); Albumin Level 3.1 g/dL (3.5-5.0); Alkaline Phosphatase 1504 U/L (39-117); Anion Gap 28 (12-20); Aspartate Amino Transferase 2532 U/L (5-31); Bilirubin Total 14.6 mg/dL (0.0-1.0); Blood Urea Nitrogen 69 mg/dL (9-16); Calcium 9.9 mg/dL (8.4-10.2); Carbon Dioxide 13 mmol/L (22-29); Chloride 95 mmol/L (96-108); Creatinine Clr Calc Pharmacy 27.5; Estimated Glomerular Filt Rate 26; Glucose Random 130 mg/dL (60-115); Magnesium 3.1 mg/dL (1.6-2.6); Potassium 5.2 mmol/L (3.3-5.1); Sodium 131 mmol/L (135-145); Total Protein 6.6 g/dL (6.5-8.0)
[2020-12-05 04:25] LABS: Ammonia 59 umol/L (13-55)
--- NOTE | 2020-12-05 05:04 | PC.NURSE ---
@0502AM DR RUIZ ASKS FOR CALL OUT TO [facility] PT TX LINE RUBIN ANSWERS, TAKES PT INFO AND ASKS TO SPEAK WITH DR SARA RUIZ TAKES OVER CALL RIGHT AWAY
[2020-12-05] MEDS: 0.9 % Sodium Chloride 1,000 ML 999 ML IV (05:16)
--- NOTE | 2020-12-05 05:16 | PC.NURSE ---
@[phone] RETURN CALL FROM [facility] PT TX LINE WITH SIMRAN ON THE LINE FOR DR SARA RUIZ TAKES OVER CALL @ THIS TIME
[2020-12-05 05:18] LABS: Band Neutrophils Percent 1 % (3-5); Giant Platelet PRESENT; Large Platelet PRESENT; Lymphocytes Absolute Manual 0.9 X10*3/uL (0.6-4.8); Lymphocytes Percent Manual 8 % (20-40); Macrocytosis 1+ (5-14) /OIF; Monocytes Absolute Manual 1.6 X10*3/uL (0.0-1.2); Monocytes Percent Manual 14 % (2-11); Myelocytes Absolute 0.2 X10*/uL; Myelocytes Percent 2 %; Neutrophils Absolute Manual 8.6 X10*3/uL (2.2-7.9); Neutrophils Percent Manual 74 % (45-73); Platelet Estimate NORMAL (NORMAL); Platelet Morphology Comment NOTED; Promyelocytes Absolute 0.1 X10*3/uL; Promyelocytes Percent 1 %; RBC Morphology NOTED
[2020-12-05 05:19] LABS: Polychromasia 1+ (0-2) /OIF; Target Cells 1+ (5-14) /OIF
[2020-12-05 05:30] LABS: COVID-19 Test Negative (Negative); IDNOW Serial# 9DD0AD1C
--- NOTE | 2020-12-05 05:48 | PC.NURSE ---
At approximately 0510, this RN and radha Diaz were providing incontinence care to pt. Pt was in the R lateral position when she made some effort to speak and informed, in Indian, that it hurts per Anum. At 0513, then began shaking with contracted extremities. Pt remained on R side, at 0514 Claudy Clarke RN and Sherley RN to bedside. Per verbal order, pt medicated with 1mg ativan IVP and 1L NS bolus hung on pressure bag at 0516. Pt remained unresponsive during this time. Pt maintained airway patency. Pt's seizure activity ended at approx 0517. Pt placed on nasal capnography. Plan for transfer to [facility] for further care. Daughter at bedside aware and agreeable to plan.
[2020-12-05 05:51] LABS: Bilirubin Direct 11.7 mg/dL (0.0-0.5)
[2020-12-05 05:56] LABS: Venous Blood Gas Refer to POC result
[2020-12-05 05:57] LABS: VBG Base Excess -18.4 mmol/L; VBG HCO3 10 mmol/L (22-26); VBG pCO2 33 mmHg; VBG pH 7.09 (7.32-7.43); VBG pO2 89 mmHg
[2020-12-05] MEDS: LORazepam 2 MG/ML VIAL 1 MG IVPUSH ×2 (05:57→06:59)
--- NOTE | 2020-12-05 05:59 | PC.NURSE ---
Dr Silva aware of pt's VS. Ativan given at [address] Silva at bedside
--- NOTE | 2020-12-05 06:00 | PC.NURSE ---
@[phone] RETTURN CALL FROM [facility] PT TX LINE ASKING TO SPEAK WITH DR SARA RUIZ TAKES OVER CALL @ THIS TIME
--- NOTE | 2020-12-05 06:02 | PC.NURSE ---
Dr Silva aware of pt's VBG pH
[2020-12-05 06:04] LABS: Glucose Urine UA NEG (NEG); Leukocyte Esterase Urine NEG (NEG); Nitrite Urine NEG (NEG); PH 5.5 (5.0-8.0); Specific Gravity - Urine >= 1.030 (1.005-1.025); Urine Blood TRACE (NEG); Urine Ketones NEG (NEG); Urine Protein 2+ MG/DL (NEG-TRACE)
[2020-12-05] MEDS: Acetaminophen Supp 650 MG SUPP.RECT PR (06:04)
[2020-12-05 06:07] LABS: Appearance Urine HAZY; Color Urine DARK YELLOW
--- NOTE | 2020-12-05 06:17 | PC.NURSE ---
dr curiel at bedside performing neuro assessment
--- NOTE | 2020-12-05 06:37 | PC.NURSE ---
@0636AM RETURN CALL FROM [facility] PT TX LINE DR RUIZ TAKES OVER CALL @ THIS TIME
[2020-12-05 06:45] LABS: Amorphous Sediment Urine 3+ /LPF; Calcium Oxalate Crystals Urine TRACE /LPF; Mucus Urine TRACE /LPF; RBC Urine 0-2 /HPF (0); Renal Epithelial Cells Urine TRACE /LPF; Squamous Epithelial Cell Urine TRACE /LPF; UPreg QC Valid YES; Urine Pregnancy NEGATIVE (NEGATIVE); WBC Urine 0-2 /HPF (0-4)
[2020-12-05 06:46] LABS: Amphetamine Screen Urine Not Detected (Not Detect); Barbiturates, Urine Not Detected (Not Detect); Benzodiazepines Screen Urine Not Detected (Not Detect); Cannabinoid Screen Urine Not Detected (Not Detect); Cocaine Screen Urine Not Detected (Not Detect); Opiate Screen Urine Not Detected (Not Detect); Phencyclidine Screen Urine Not Detected (Not Detect)
--- NOTE | 2020-12-05 06:55 | PC.NURSE ---
@ [phone] RETURN CALL FROM [facility]AT[facility] OF [facility] PT TX LINE WITH BED ASSIGNMENT ACCEPTING MD IS DR CHEN ROOM ASSIGNMENT IS: ZULMA 5B BED 3 RN TO RN SHOULD BE CALLED TO [phone]
--- NOTE | 2020-12-05 06:58 | PC.NURSE ---
Pt HR elevated to 147 ST, Dr Gutierrez to bedside, to order ativan
[2020-12-05] MEDS: Sodium Bicarbonate 8.4% 150 MEQ in Dextrose 5 % 850 ML 100 MEQ IV (08:02)
--- NOTE | 2020-12-05 08:18 | PC.NURSE ---
pt medicated for high HR and woory for seizure. She is resting quietly. Report to EMS, pt readied for transfer to [facility].
== END 2020-12-05 08:23 | disposition short-term general hospital (02) ==
PROVIDERS: Emergency Provider Student in an Organized Health Care Education/Training Program; PCP Internal Medicine
DX: R56.9 Unspecified convulsions (principal); C50.919 Malignant neoplasm of unspecified site of unspecified female breast; R17 Unspecified jaundice; R93.2 Abnormal findings on diagnostic imaging of liver and biliary tract; Z20.822 Contact with and (suspected) exposure to COVID-19
CPT/HCPCS: 36415; 70450; 72125; 74176; 80053; 80307; 81001; 81003; 81025; 82077; 82140; 82248; 82803; 82947; 83735; 85007; 85025; 85027; 87635; 93005; 96361; 96365; 96375; 96376; 99285; J2060

== ENCOUNTER → 2024-01-17 14:01 | Outpatient (RCR) | payer OTHER, SELFPAY ==
[2020-05-19 11:18] LABS: MANUAL DIFF FLAG NO
[2020-05-19 11:26] VITALS: BP 117/75; PULSE 102; RESP 12; TEMP 36.6; O2SAT 98; BMI 25.9
[2020-05-19 11:33] LABS: Basophils Absolute Auto 0.1 X10*3/uL (0.0-0.2); Basophils Percent Auto 0.7 % (0-2); Eosinophils Absolute Auto 0.1 X10*3/uL (0.0-0.4); Eosinophils Percent Auto 0.9 % (0-4); Hematocrit 33.7 % (37-47); Hemoglobin 11.1 g/dl (12.0-16.0); Imm Gran Abs Auto 0.06 X10*3/uL (0.00-0.03); Imm Gran Pct Auto 0.7 % (0.0-0.4); Lymphocytes Absolute Auto 2.3 X10*3/uL (1.2-4.9); Lymphocytes Percent Auto 24.4 % (20-40); Mean Corpuscular HGB Conc 32.9 g/dl (31.0-35.0); Mean Corpuscular Hemoglobin 26.7 pg (27.0-33.0); Mean Platelet Volume 9.6 fL (9.4-12.3); Monocytes Absolute Auto 0.8 X10*3/uL (0.1-1.2); Monocytes Percent Auto 8.4 % (2-11); Neutrophils Percent Auto 64.9 % (45-73); Platelet Count 403 X10*3/uL (160-400); Red Blood Count 4.16 X10*6/uL (4.20-5.50); White Blood Count 9.2 X10*3/uL (4.8-10.8)
[2020-05-19 11:54] LABS: Alanine Aminotransferase 53 U/L (0-31); Albumin Level 3.8 g/dL (3.5-5.0); Alkaline Phosphatase 219 U/L (39-117); Anion Gap 12 (12-20); Aspartate Amino Transferase 59 U/L (5-31); Bilirubin Total 0.6 mg/dL (0.0-1.0); Blood Urea Nitrogen 10 mg/dL (9-16); Calcium 8.9 mg/dL (8.4-10.2); Carbon Dioxide 24 mmol/L (22-29); Chloride 104 mmol/L (96-108); Creatinine Clr Calc Pharmacy 86.7; Estimated Glomerular Filt Rate > 60; Glucose Random 105 mg/dL (60-115); Sodium 136 mmol/L (135-145)
[2020-05-19 12:17] LABS: Vitamin D 25-OH Total 26.8 ng/mL (>30)
[2020-05-19 12:42] LABS: Iron 64 mcg/dL (30-160); Percent Iron Saturation 16 % (15-50); Total Iron Binding Capacity 408 mcg/dL (228-428); Unsaturated Iron Binding 344 ug/dL
[2020-05-19 13:02] LABS: Ferritin 24 ng/mL (10-250)
--- NOTE | 2020-05-19 13:25 | P.PNHO_ITS ---
Medical Summary - Medical Summary Date of Service: 05/19/20 Medical Summary: DIAGNOSIS: LEFT BREAST CANCER. Fully differentiated invasive ductal CA, 2.2 x 2.5 x 2.2 cm, grade 2 with ductal carcinoma in Situ and focal lymphatic invasion. ER positive, MS positive, HER2 Giovani positive. Lymph node negative. Stage pT2,N0,M0. CURRENT THERAPY: 1. Lumpectomy on 05/21/2007. 2. Redig node biopsy on 06/21/2007. 3. AC x4 between 11/07/2007 through 01/20/2008. 4. Herceptin completed 52 weeks on September 13. 5. Tamoxifen started 02/04/2008. Completed 01/2018. 6. Stage III reconstruction of the left breast with reconstruction of the nipple areola complex in 08/28. Interval History Interval history: This is a delightful 39 year old lady here for a follow-up visit. She tells me nothing is really new with her medical history nor medications. She is tired but not unduly so. She is quite active. She does not laid down during the day for naps. Her period is regular. Denies heavy bleeding. She does complain of some heartburn and reflux symptoms. Denies abdominal pain nausea vomiting. She denies any diarrhea. No gross blood in the stools. She enjoys a good appetite. She has gained weight. She denies any headache no dizziness. No chest pain or trouble breathing. She is in good spirits. Rest of the review of systems is unremarkable. Review of Systems - Constitutional Reports system reviewed and no additional complaints, except as documented - Eyes Reports system reviewed and no additional complaints, except as documented - ENT Reports system reviewed and no additional complaints, except as documented - Cardiovascular Reports system reviewed and no additional complaints, except as documented - Respiratory Reports no additional respiratory complaints - Gastrointestinal Reports system reviewed and no additional complaints, except as documented - Genitourinary Reports no additional female genitourinary complaints - Musculoskeletal Reports system reviewed and no additional complaints, except as documented - Integumentary/Breasts Skin/Breast: Reports no additional skin complaints - Neurologic Reports system reviewed and no additional complaints, except as documented - Psychiatric Reports system reviewed and no additional complaints, except as documented - Endocrine Reports no additional endocrine complaints - Hematologic/Lymphatic Reports system reviewed and no additional complaints, except as documented - Allergic/Immunologic Reports system reviewed and no additional complaints, except as documented PMFSH Medical History: Medical History (Last Updated 05/19/20 @ 11:39 by Inocencia Grayson) Anxiety Depression Functional capacity: independent ambulation Patient : No Family History: Family History (Last Updated 02/19/20 @ 17:40 by LEONILA Christiansen) Father Diabetes Hypertension CVD (cardiovascular disease) Mother No problems noted. Maternal Grandmother Cancer Maternal Grandfather Cancer Surgical History: Surgical History (Last Updated 02/19/20 @ 17:37 by LEONILA Christiansen) H/O left mastectomy History of bilateral tubal ligation Smoking status: Former smoker Home Medications and Allergies Home Medications Medication Instructions Recorded Confirmed Type aspirin 81 mg tablet,delayed 81 mg PO DAILY 02/19/20 05/19/20 History release citalopram 10 mg tablet 10 mg PO DAILY 02/19/20 05/19/20 History lorazepam 0.5 mg tablet 0.5 mg PO TID PRN 02/19/20 05/19/20 History Allergies Allergy/AdvReac Type Severity Reaction Status Date / Time No Known Allergies Allergy Mild NOT Verified 04/09/20 12:58 APPLICABLE Exam Vital signs: Vital Signs Temp 98 F 05/19/20 11:26 Pulse 102 H 05/19/20 11:26 Resp 12 05/19/20 11:26 BP 117/75 05/19/20 11:26 Pulse Ox 98 05/19/20 11:26 Intake & Output 05/18/20 05/19/20 05/19/20 18:59 06:59 18:59 Other: Weight 62.4 kg Weight 62.4 kg Body Mass Index 25.9 - Constitutional Present: no acute distress - Routine HEENT Exam Head: Present: normal inspection Eye: Present: normal appearance ENT: Present: mucous membranes moist - Routine Neck Exam Present: full ROM - Routine Respiratory Exam Present: CTAB - Routine Cardiovascular Exam Cardiovascular: Present: RRR, S1, S2 - Routine Abdominal Exam Present: soft, nontender - Routine Rectal Exam Patient deferred: digital exam - Routine Extremities Exam Present: nontender - Routine Back/Spine/Pelvis Exam Back/Spine: Present: full ROM - Routine Skin Exam Present: intact - Routine Neurological Exam Present: alert, oriented X3 - Routine Psychiatric Exam Present: normal affect Data - Labs CBC & Chem 7: 05/19/20 11:16 05/19/20 11:16 Labs: 05/19/20 11:16 Ferritin Routine IRON PROFILE Routine 05/19/20 11:16 Complete Blood Count Auto Diff Routine Comprehensive Met. Panel Routine Vitamin D 25-OH Total Routine 05/19/20 12:29 Add Laboratory Test Routine Laboratory Last Values WBC 9.2 X10*3/uL (4.8-10.8) 05/19/20 11:16 RBC 4.16 X10*6/uL (4.20-5.50) L 05/19/20 11:16 Hgb 11.1 g/dl (12.0-16.0) L 05/19/20 11:16 Hct 33.7 % (37-47) L 05/19/20 11:16 MCV 81.0 fL (80-98) 05/19/20 11:16 MCH 26.7 pg (27.0-33.0) L 05/19/20 11:16 MCHC 32.9 g/dl (31.0-35.0) 05/19/20 11:16 RDW 15.0 % (11.0-16.0) 05/19/20 11:16 Plt Count 403 X10*3/uL (160-400) H 05/19/20 11:16 MPV 9.6 fL (9.4-12.3) 05/19/20 11:16 Immature Gran % (Auto) 0.7 % (0.0-0.4) H 05/19/20 11:16 Neut % (Auto) 64.9 % (45-73) 05/19/20 11:16 Lymph % (Auto) 24.4 % (20-40) 05/19/20 11:16 [place] % (Auto) 8.4 % (2-11) 05/19/20 11:16 Eos % (Auto) 0.9 % (0-4) 05/19/20 11:16 Baso % (Auto) 0.7 % (0-2) 05/19/20 11:16 Lymph # (Auto) 2.3 X10*3/uL (1.2-4.9) 05/19/20 11:16 [place] # (Auto) 0.8 X10*3/uL (0.1-1.2) 05/19/20 11:16 Eos # (Auto) 0.1 X10*3/uL (0.0-0.4) 05/19/20 11:16 Baso # (Auto) 0.1 X10*3/uL (0.0-0.2) 05/19/20 11:16 Abs Immat Gran (auto) 0.06 X10*3/uL (0.00-0.03) H 05/19/20 11:16 Absolute Neuts (auto) 6.0 X10*3/uL (2.0-8.3) 05/19/20 11:16 Absolute Nucleated RBC 0.000 X10*3/uL (0.0-0.012) 05/19/20 11:16 Nucleated RBC % (auto) 0.0 /100WBC (0.0-0.2) 05/19/20 11:16 Sodium 136 mmol/L (135-145) 05/19/20 11:16 Potassium 4.0 mmol/l (3.3-5.1) 05/19/20 11:16 Chloride 104 mmol/L (96-108) 05/19/20 11:16 Carbon Dioxide 24 mmol/L (22-29) 05/19/20 11:16 Anion Gap 12 (12-20) 05/19/20 11:16 BUN 10 mg/dL (9-16) 05/19/20 11:16 Creatinine 0.73 mg/dL (0.5-1.4) 05/19/20 11:16 Estim Creat Clear Calc 86.7 05/19/20 11:16 Estimated GFR > 60 05/19/20 11:16 Random Glucose 105 mg/dL (60-115) 05/19/20 11:16 Calcium 8.9 mg/dL (8.4-10.2) 05/19/20 11:16 Iron 64 mcg/dL (30-160) 05/19/20 11:16 TIBC 408 mcg/dL (228-428) 05/19/20 11:16 % Saturation 16 % (15-50) 05/19/20 11:16 Unsat Iron Binding 344 ug/dL 05/19/20 11:16 Ferritin 24 ng/mL (10-250) 05/19/20 11:16 Total Bilirubin 0.6 mg/dL (0.0-1.0) 05/19/20 11:16 AST 59 U/L (5-31) H 05/19/20 11:16 ALT 53 U/L (0-31) H 05/19/20 11:16 Alkaline Phosphatase 219 U/L (39-117) H 05/19/20 11:16 Total Protein 7.0 g/dL (6.5-8.0) 05/19/20 11:16 Albumin 3.8 g/dL (3.5-5.0) 05/19/20 11:16 25-OH Vitamin D Total 26.8 ng/mL (>30) 05/19/20 11:16 Progress Note: A/P (1) HER2-positive carcinoma of breast Status: Acute Assessment and plan: This is a pleasant 39-year-old lady with history of left breast cancer. She underwent simple mastectomy . Subsequently had adjuvant chemotherapy with AC completed 12/30/2007. She completed Herceptin 08/28. She was then maintained on tamoxifen for 10 years. Starting February 03 through January 2018. She is clinically doing quite well. She is anemic. Hemoglobin is 10.2. She has had some reflux symptoms. She was noted to have abnormal LFTs. Her hepatitis B and C profile were negative. PLAN: I will proceed With an ultrasound of the abdomen for further evaluation. Will refer her for further GI evaluation. She has not been taking her iron for the past 3 months. A prescription was sent to her pharmacy. She will have annual mammograms. - Time Spent With Patient Total time spent is greater than 50% in coordination of care (as documented) at patient's floor/unit and/or counseling patient: 25 - 35 minutes
--- NOTE | 2020-05-19 13:36 | MHC.HEMONCMA ---
Patient came in for a follow up today for breast cancer. She states she is doing well. Dr Chowdary would like for her to have an ultrasound, a consult with GI and a 6 mo f/u. I will schedule all 3 visits and call her.
--- NOTE | 2020-05-19 14:48 | MHC.HEMONCMA ---
Patient is booked for her 6 mo f/u with Dr Chowdary, pt aware per Nia calling her. Ultrasound placed in order fascilitator- I will check tomorrow for it's status. Called and spoke with GI, they can get her in for a consult on 06/11/20 at 3pm.
[2020-05-21 12:52] LABS: CA 27.29 41 U/mL (<38)
--- NOTE | 2020-05-25 12:46 | MHC.HEMONCMA ---
Checked order fascilitator, patient is scheduled for the ultrasound on 06/04/2020. Patient was notified by ultrasound.
== END | disposition home or self-care (01) ==
LOC: HO.ONC 05-19 11:06
PROVIDERS: PCP Internal Medicine; Visit Provider Internal Medicine Medical Oncology
DX: Z85.3 Personal history of malignant neoplasm of breast (principal); Z92.21 Personal history of antineoplastic chemotherapy; Z90.12 Acquired absence of left breast and nipple
CPT/HCPCS: 36415; 80053; 82306; 82728; 83540; 85025; 86300; 99214